=== PATIENT | female | born 1960 | race Caucasian/White ===

== ENCOUNTER → 2018-09-24 | Outpatient (CLI) | payer OTHER ==
[2016-04-18 09:58] VITALS: BP 127/79
[~2018-09-24] MED LIST: CALC500T54 PO; CHOL100013 PO; ESTR1TAB15 PO; FEXO180T81 PO; PITA2TAB2 PO; POTA10TA12 PO
--- NOTE | 2018-09-24 15:04 | KCIC ---
MR of the left foot HISTORY: Left lateral mid foot pain after walking a few months ago. Suspected third metatarsal stress fracture. TECHNIQUE: Routine multiplanar sequences are obtained centered at the midfoot. FINDINGS: Minimal marrow edema within the superior distal shaft of the fourth metatarsal, with minimal surrounding soft tissue edema. No actual fracture line is seen. Other metatarsals appear unremarkable. The visualized tendons are intact without significant fluid or disruption. No acute sesamoiditis. Lisfranc ligament complex is intact as is tarsometatarsal alignment. No large joint effusion. IMPRESSION: Very subtle findings raise the question of a subtle stress reaction at the distal fourth metatarsal shaft. No clearly visible fracture line. Electronically signed by: Mann Lujan MD (09/24/2018 3:02 PM) [facility]
== END | disposition home or self-care (01) ==
LOC: KCIC MRI 13:39
PROVIDERS: ATTEND Podiatrist Foot & Ankle Surgery
DX: M79.672 Pain in left foot (principal)
CPT/HCPCS: 73718

== ENCOUNTER → 2021-07-05 | Day surgery (SDC) | payer OTHER ==
[~2021-07-05] VITALS: Ht 162.6 cm; Wt 65.4 kg
[~2021-07-05] MED LIST changes: +ATOR10TA60 PO; +BYSTOLIC2.5 MG PO; +ESTR-113 PO; -ESTR1TAB15 PO; +HYDROmorphone 2 MG/ML INJ. IVP PRN; +IV RINGERS,LACTATED 1000ML 1,000 ML IV SCH; +LIDOCAINE 2% PF 5 ML VIAL. ONE; +MORPHINE SULFATE 2 MG/ML INJ. IVP PRN; +PROCHLORPERAZINE 10 MG/2 ML VIAL. IVP PRN; +PROPOFOL 10 MG/ML (20ML) VIAL. IV ONE; +fentaNYL PF VIAL 100 MCG/2 ML VIAL IVP PRN
[2021-07-05 08:13] VITALS: BP 142/65
[2021-07-05 10:04] VITALS: BP 118/73
--- NOTE | 2021-07-06 18:08 | PATHOLOGY ---
[facility] Accession Number: [id number] . 01 Material submitted: . PART A: small bowel - SMALL BOWEL BIOPSY PART B: stomach - ANTRUM AND BODY BIOPSY PART C: esophagus - DISTAL ESOPHAGUS BIOPSY. Modifiers: distal PART D: esophagus - MID ESOPHAGUS BIOPSY. Modifiers: mid PART E: rectum - RECTAL POLYP . 01 Clinical history: . DYSPHAGIA/HX OF POLYPS EGD/COLON HIATAL HERNIA/ ESOPHAGITIS BIOPSY/ IFNLAMMATION POLYP . 02 Diagnosis: A. Small bowel biopsies: - Focal partial villous atrophy, crypt hyperplasia, and chronic inflammation. . B. Gastric biopsies, gastric antrum and body: - Chronic gastritis, mild. . C. Esophageal biopsies, distal esophagus: - Reflux changes. . D. Esophageal biopsy, middle esophagus: - Segment of mildly hyperplastic squamous esophageal mucosa. . E. Colorectal biopsy, rectal polyp: - Hyperplastic polyp. . (JPM:chana; 07/06/2021) S 07/06/2021 1458 Local . 02 Comment: Sections of the small bowel biopsy reveal segments of duodenal and small intestine mucosa. The mucosa focally shows partial villous atrophy, crypt hyperplasia, and chronic inflammation. These changes are nonspecific, but may reflect conditions such as partially treated celiac sprue, bacterial overgrowth, hypersensitivity reaction to non-gluten proteins, etc. . Sections of the gastric biopsy reveal segments of gastric body and gastric antral mucosa. The gastric body mucosa shows very mild superficial chronic inflammation. The gastric antral mucosa shows mild chronic inflammation. A properly controlled immunoperoxidase stain for Helicobacter is negative for Helicobacter organisms. . Sections of the distal esophageal biopsy reveal segments of hyperplastic squamous esophageal mucosa with contiguous and separate segments of gastric mucosa showing focal moderate chronic inflammation. The findings are consistent with reflux changes. There is no evidence of Chery's change, dysplasia, or malignancy. . Sections of the middle esophageal biopsy reveal a segment of mildly hyperplastic squamous esophageal mucosa. . Sections of the rectal biopsy reveal a hyperplastic polyp. There are no adenomatous changes or evidence of malignancy. (JPM:chana; 07/06/2021) . . Special stain performed: Immunoperoxidase stain for Helicobacter on B1 . 02 Electronically signed: . Richard Melendez MD, Pathologist NPI- [id number] . 01 Gross description: . A. The specimen is received in formalin, labeled "Remedios You, small bowel biopsy". Received are four segments of pale goldsmith tissue measuring 0.3 cm each in maximum dimensions. The specimen is submitted entirely in cassette A1. . B. The specimen is received in formalin, labeled "Remedios You, antrum and body biopsy". Received are four segments of pale goldsmith tissue ranging in size from 0.3-0.5 cm in maximum dimensions. The specimen is submitted entirely in cassette B1. . C. The specimen is received in formalin, labeled "Remedios You, distal esophagus biopsy". Received are three segments of pale goldsmith tissue ranging in size from 0.4-0.5 cm in maximum dimensions. The specimen is submitted entirely in cassette C1. . D. The specimen is received in formalin, labeled "Remedios You, mid esophagus biopsy". Received is a segment of pale goldsmith tissue measuring 0.2 cm in maximum dimensions. The specimen is submitted entirely in cassette D1. . E. The specimen is received in formalin, labeled "Remedios You, rectal polyp". Received is a segment of pale goldsmith tissue measuring 0.7 cm in maximum dimensions. The specimen is submitted entirely in cassette E1. (CAA; 07/05/2021) QAC/QAC 07/05/2021 1539 [facility] . 02 Pathologist provided ICD-10: K52.9, K63.89, K29.50, K62.1 . 02 CPT . 563267, 053528, 126131, [id number], [id number], [id number] Specimen Comment: A courtesy copy of this report has been sent to [phone], [phone] Specimen Comment: [id number] Specimen Comment: Report sent to / DR PLASCENCIA Performed at: [address] [place] [address] [address], [place] [id number] MD Zackary Cash MD Phone: [phone] Performed at: [address] [id number] MD Richard Melendez MD Phone: [phone]
== END | disposition home or self-care (01) ==
LOC: SURG 07:57
PROVIDERS: ATTEND Internal Medicine Gastroenterology
DX: Z12.11 Encounter for screening for malignant neoplasm of colon (principal); K64.0 First degree hemorrhoids; K29.50 Unspecified chronic gastritis without bleeding; K62.1 Rectal polyp; K31.89 Other diseases of stomach and duodenum; K63.89 Other specified diseases of intestine; K21.00 Gastro-esophageal reflux disease with esophagitis, without bleeding; K44.9 Diaphragmatic hernia without obstruction or gangrene; Z86.010 Personal history of colon polyps; E78.00 Pure hypercholesterolemia, unspecified; Z79.899 Other long term (current) drug therapy; Z98.890 Other specified postprocedural states; Z90.710 Acquired absence of both cervix and uterus; Z85.828 Personal history of other malignant neoplasm of skin; Z72.89 Other problems related to lifestyle; Z88.8 Allergy status to other drugs, medicaments and biological substances
CPT/HCPCS: 43239; 43450; 45380; J2704; 88305; 88342